=== PATIENT | male | born 1945 | race Caucasian/White ===

== ENCOUNTER 2016-12-29 09:10 | Day surgery (SDC) | payer MEDICARE ==
[2016-12-24 15:47] VITALS: BMI 34.4
[~2016-12-29 09:10] MED LIST: LACTATED RINGERS 1,000 ML IV SCH
[2016-12-29 09:48] VITALS: TEMP 97.6
[2016-12-29] MEDS ORDERED: LIDOCAINE 1% 20 ML VIAL (10MG/ML) FOR IV START INTRADERMA ONE (09:48)
[2016-12-29 09:49] LABS: Glucose,Whole Blood 145 mg/dL (75-99)
[2016-12-29] MEDS ORDERED: LIDOCAINE 1% INJ 10MG/ML (20 ML MDV) ONE (10:33)
[2016-12-29] MEDS ORDERED: PROPOFOL 10 MG/ML 20 ML VIAL IV ONE (10:33)
--- NOTE | 2016-12-29 11:02 | P.PCN ---
Date of Procedure: 12/29/16 Preoperative Diagnosis: Postoperative Diagnosis: Procedure(s) Performed: BRIEF HISTORY: Patient is a 71-year-old pleasant white male, scheduled for an elective colonoscopy as a part of screening for colorectal neoplasia. He does have family history of colon cancer diagnosed in his brother and mother in the 60s. His last colonoscopy was 10 years ago PROCEDURE PERFORMED: Colonoscopy with snare polypectomy. PREOPERATIVE DIAGNOSIS: Screening for colon cancer/family history of colon cancer. IV sedation per Anesthesia. PROCEDURE: After informed consent was obtained, the patient, was brought into the endoscopy unit. IV sedation was administered by Anesthesia under continuous monitoring. Digital rectal examination was normal. Initially the Olympus CF- 160 flexible video colonoscope was then inserted in the rectum, gradually advanced into the cecum without any difficulty. Careful examination was performed as the scope was gradually being withdrawn. Ileocecal valve and the appendiceal orifice were visualized and appeared normal. Prep was excellent. Mucosa of the cecum, ascending colon, transverse colon, descending colon, sigmoid colon, and rectum appeared normal. There was a 1 cm polyp in the proximal rectum that was removed by snare polypectomy. Scattered diffuse diverticulosis noted. Retroflexion was performed in the rectum and no lesions were seen. The patient tolerated the procedure well. IMPRESSION: 1 cm proximal rectal polyp serous was snare polypectomy Scattered diffuse diverticulosis RECOMMENDATIONS: Findings of this examination were discussed with the patient as well as his family. He was advised to follow with the biopsy results. He can have a repeat colonoscopy in 3-5 years based on the biopsy. Implants: Indications for Procedure: Operative Findings: Description of Procedure:
[2016-12-29 11:06] VITALS: RESP 18
[2016-12-29 11:23] VITALS: BP 129/70; PULSE 70
== END 2016-12-29 11:37 | disposition home or self-care (01) ==
LOC: ORWHC2ENDO 09:10
PROVIDERS: ATTEND Internal Medicine Gastroenterology
DX: Z12.11 Encounter for screening for malignant neoplasm of colon (principal); D12.8 Benign neoplasm of rectum; K57.30 Diverticulosis of large intestine without perforation or abscess without bleeding; Z80.0 Family history of malignant neoplasm of digestive organs; K21.9 Gastro-esophageal reflux disease without esophagitis; I25.10 Atherosclerotic heart disease of native coronary artery without angina pectoris; I10 Essential (primary) hypertension; F17.200 Nicotine dependence, unspecified, uncomplicated; J44.9 Chronic obstructive pulmonary disease, unspecified; Z86.711 Personal history of pulmonary embolism; G47.33 Obstructive sleep apnea (adult) (pediatric); Z86.11 Personal history of tuberculosis; Z95.5 Presence of coronary angioplasty implant and graft; E11.9 Type 2 diabetes mellitus without complications; Z79.84 Long term (current) use of oral hypoglycemic drugs; N40.0 Benign prostatic hyperplasia without lower urinary tract symptoms; Z79.82 Long term (current) use of aspirin; Z79.899 Other long term (current) drug therapy; Z88.5 Allergy status to narcotic agent; Z88.0 Allergy status to penicillin
CPT/HCPCS: 45385; 88305

== ENCOUNTER 2018-08-18 19:19 | Emergency (ER) | payer MEDICARE ==
[2018-08-18 19:28] VITALS: RESP 18
--- NOTE | 2018-08-18 19:57 | ED ---
Fall HPI - General Chief Complaint: Fall Stated Complaint: Fall Time Seen by Provider: 08/18/18 19:30 Source: patient, RN notes reviewed, old records reviewed Mode of arrival: ambulatory - History of Present Illness Initial Comments: This is a 73-year-old male the ER for evaluation status post fall fall 2 days ago patient is on blood thinners did fall trying to get into car fell backward and hit his had a positive LOC. Patient was boarding are going toward complain did finish with his flight came home and then does not coming to the emergency room for evaluation. Patient denies any complaints no headache. MD Complaint: fall -: days(s) (2) Fall From: standing When Fall Occurred: # days [employer] Fall Witnessed: yes, by family Place Fall Occurred: street Loss of Consciousness: yes Prolonged Down Time?: no Symptoms Prior to Fall: none Location: head Severity: moderate Context: tripped/slipped Associated Symptoms: denies - Related Data Home Medications Medication Instructions Recorded Confirmed Albuterol Sulfate [Proair Hfa] 1 - 2 puff INHALATION Q6HR PRN 11/15/16 08/18/18 Allopurinol [Zyloprim] 100 mg PO DAILY 11/15/16 08/18/18 Hydrochlorothiazide 25 mg PO DAILY 11/15/16 08/18/18 Losartan Potassium 100 mg PO DAILY 11/15/16 08/18/18 Metoprolol Succinate (ER) [Toprol 25 mg PO BID 11/15/16 08/18/18 Xl] Montelukast [Singulair] 10 mg PO DAILY 11/15/16 08/18/18 Nitroglycerin Sl Tabs [Nitrostat] 0.4 mg SUBLINGUAL Q5M PRN 11/15/16 08/18/18 Atorvastatin [Lipitor] 10 mg PO DAILY 12/24/16 08/18/18 Desipramine HCl 30 mg PO HS 12/24/16 08/18/18 Tamsulosin [Flomax] 0.4 mg PO BID 12/24/16 08/18/18 Apixaban [Eliquis] 5 mg PO BID 08/18/18 08/18/18 Azelastine HCl [Astepro] 1 spray EA NOSTRIL DAILY PRN 08/18/18 08/18/18 Fluticasone/Salmeterol [Advair 1 puff INHALATION RT-BID 08/18/18 08/18/18 500-50 Diskus] amLODIPine BESYLATE [Norvasc] 2.5 mg PO DAILY 08/18/18 08/18/18 sitaGLIPtin PHOS/metFORMIN HCL 1 tab PO BID 08/18/18 08/18/18 [Janumet 50-1,000 mg Tablet] Allergies Allergy/AdvReac Type Severity Reaction Status Date / Time morphine Allergy Severe Rash/Hives Verified 08/18/18 20:05 Penicillins Allergy Severe Rash/Hives Verified 08/18/18 20:05 Review of Systems ROS Statement: Those systems with pertinent positive or pertinent negative responses have been documented in the HPI. ROS Other: All systems not noted in ROS Statement are negative. Past Medical History Past Medical History: Atrial Fibrillation, Coronary Artery Disease (CAD), COPD, Hyperlipidemia, Hypertension, Osteoarthritis (OA), Prostate Disorder, Sleep Apnea/CPAP/BIPAP History of Any Multi-Drug Resistant Organisms: None Reported Past Surgical History: Appendectomy, Heart Catheterization With Stent, Orthopedic Surgery Past Anesthesia/Blood Transfusion Reactions: No Reported Reaction Date of Last Stent Placement:: unknown Past Psychological History: No Psychological Hx Reported Smoking Status: Never smoker Past Alcohol Use History: None Reported Past Drug Use History: None Reported General Exam Limitations: no limitations General appearance: alert, in no apparent distress Head exam: Present: normocephalic, normal inspection. Absent: atraumatic (Occipital abrasion) Eye exam: Present: normal appearance, PERRL, EOMI. Absent: scleral icterus, conjunctival injection, periorbital swelling ENT exam: Present: normal exam, mucous membranes moist Neck exam: Present: normal inspection. Absent: tenderness, meningismus, lymphadenopathy Respiratory exam: Present: normal lung sounds bilaterally. Absent: respiratory distress, wheezes, rales, rhonchi, stridor Cardiovascular Exam: Present: regular rate, normal rhythm, normal heart sounds. Absent: systolic murmur, diastolic murmur, rubs, gallop, clicks GI/Abdominal exam: Present: soft, normal bowel sounds. Absent: distended, tenderness, guarding, rebound, rigid Extremities exam: Present: normal inspection, full ROM, normal capillary refill. Absent: tenderness, pedal edema, joint swelling, calf tenderness Back exam: Present: normal inspection Neurological exam: Present: alert, oriented X3, CN II-XII intact Psychiatric exam: Present: normal affect, normal mood Skin exam: Present: warm, dry, intact, normal color. Absent: rash Course Vital Signs 08/18/18 19:22 Temperature 98.2 F Pulse Rate 73 Respiratory 18 Rate Blood Pressure 142/66 O2 Sat by Pulse 98 Oximetry - Reevaluation(s) Reevaluation #1: 08/18/18 20:46 Medical record reviewed Reevaluation #2: 08/18/18 20:46 Patient's in no acute distress not complaining of any pain or headache Medical Decision Making - Medical Decision Making 73 male the ER status post fall. Patient fell landing back on his head did hit his head on blood thinners. Did have positive LOC. Did fly home and coming to ER for evaluation. Patient is CT brain C-spine negative here. Patient can be discharged home - Radiology Data Radiology results: report reviewed (CT brain C-spine negative for acute disease), image reviewed Disposition Clinical Impression: Fall, Head injuries Disposition: HOME SELF-CARE Condition: Good Instructions (If sedation given, give patient instructions): Fall Prevention for Older Adults (ED), Head Injury (ED) Is patient prescribed a controlled substance at d/c from ED?: No Referrals: Javon Paniagua MD [Primary Care Provider] - 1-2 days
--- NOTE | 2018-08-18 20:53 | CT ---
EXAMINATION TYPE: CT brain camila rivero DATE OF EXAM: 08/18/2018 COMPARISON: HISTORY: Fall on concrete yesterday, right posterior head injury with +LOC. CT DLP: 1551 mGycm Automated exposure control for dose reduction was used. TECHNIQUE: CT scan of the head and cervical spine are performed without contrast. FINDINGS: There is cerebral cortical atrophy. There is no mass effect nor midline shift. There is n o sign of intracranial hemorrhage. Calvarium is intact. Cervical vertebra have normal alignment. There is mild degenerative disc space narrowing at C5-6. The re is mild spurring of the endplates. Facet joints are intact. The skull base appears intact. There i s some soft tissue ossification posterior to the mid cervical spine. There is carotid artery calcific ation. IMPRESSION: Cerebral atrophy. No acute intracranial abnormality. Spondylotic changes in the lower cervical spine. No fracture.
[2018-08-18 21:10] VITALS: BP 138/68; PULSE 76; TEMP 98
== END 2018-08-18 21:10 | disposition home or self-care (01) ==
LOC: EC 19:19
DX: S00.01XA Abrasion of scalp, initial encounter (principal); I48.91 Unspecified atrial fibrillation; I25.10 Atherosclerotic heart disease of native coronary artery without angina pectoris; J44.9 Chronic obstructive pulmonary disease, unspecified; E78.5 Hyperlipidemia, unspecified; I10 Essential (primary) hypertension; N42.9 Disorder of prostate, unspecified; G47.30 Sleep apnea, unspecified; Z99.89 Dependence on other enabling machines and devices; Z95.5 Presence of coronary angioplasty implant and graft; Z79.01 Long term (current) use of anticoagulants; Z79.51 Long term (current) use of inhaled steroids; Z79.84 Long term (current) use of oral hypoglycemic drugs; Z79.899 Other long term (current) drug therapy; Z88.5 Allergy status to narcotic agent; Z88.0 Allergy status to penicillin; W01.10XA Fall on same level from slipping, tripping and stumbling with subsequent striking against unspecified object, initial encounter; Y92.410 Unspecified street and highway as the place of occurrence of the external cause; Y93.89 Activity, other specified
CPT/HCPCS: 70450; 72125; 93005; 99284

== ENCOUNTER → 2020-09-20 | Outpatient (CLI) | payer MEDICARE ==
--- NOTE | 2020-09-23 07:00 | PE ---
EXAMINATION TYPE: PET CT fusion skull to thigh DATE OF EXAM: 09/20/2020 COMPARISON: NONE HISTORY: Solitary pulmonary nodule , abnormal CT, history of renal cell carcinoma diagnosed July [id number] TECHNIQUE: Following the intravenous administration of 7.74 mCi of F-18 FDG, whole body images are p erformed from the skull base to the midthigh. Images are reviewed on the computer in the coronal, ax ial, and sagittal planes. Reconstructed rotating images are created on independent workstation and r eviewed on the computer. A localization and attenuation correction CT is performed in conjunction w ith the PET scan. Blood glucose level equals 159 SCAN: Initial Scan FINDINGS: SKULL BASE AND NECK: Abnormal several enlarged hypermetabolic right sided neck lymph nodes, for refe rence 2.3 x 1.6 cm lymph node just below vocal cords axial image 34, max SUV is 5.81. CHEST, MEDIASTINUM, AND HILAR REGION: Small to borderline moderate size right pleural effusion. Small left pleural effusion. Both ametabolic. Large irregular obstructive right hilar roughly 10 x 6 cm mass axial image 74, max SUV is 9.55. There is postobstructive atelectasis with heterogeneity extending inferiorly. Invasion into the azygoesoph ageal recess is suspected. Abnormal hypermetabolic thoracic lymph nodes throughout the mediastinum and bilateral hilar regions. For reference there is 3.4 x 3.4 cm paratracheal lymph node axial image 61, max SUV is 8.22. Extensio n into the anterior superior mediastinum is noted extending into the right neck. ABDOMEN AND PELVIS: Probable hepatic metastatic lesion with poorly visualized slightly hypodense 4.3 cm lesion right hepatic lobe axial image 126, max SUV is 8.4. Abnormal ill-defined yolande hepatic adenopathy near image 131, max SUV is 8.5. OSSEOUS STRUCTURES: No areas of abnormal hypermetabolic uptake. OTHER CT: Moderate to severe three-vessel coronary artery calcification. Small to tiny pericardial ef fusion. Mild flame-shaped subareolar gynecomastia bilaterally. Moderate calcified plaque bilateral carotid bulb level. Low density area posterior kidney on axial im age 89 with a metabolic, possible posttreatment change or benign cystic lesion. Metallic hardware from right hip arthroplasty causes streak artifact limiting evaluation of pelvic st ructures. Scattered bilateral pelvic phleboliths. IMPRESSION: Findings consistent with high stage neoplasm as detailed above. Large right-sided obstruc tive mass with significant thoracic adenopathy and right neck adenopathy along with hepatic metastati c disease and central yolande hepatic adenopathy.
== END | disposition home or self-care (01) ==
LOC: RADPETMAIN 09:29
PROVIDERS: ATTEND Internal Medicine
DX: R91.8 Other nonspecific abnormal finding of lung field (principal); C78.7 Secondary malignant neoplasm of liver and intrahepatic bile duct; Z85.528 Personal history of other malignant neoplasm of kidney
CPT/HCPCS: 78815; A9552

== ENCOUNTER → 2020-09-25 | Outpatient (CLI) | payer MEDICARE ==
[2020-09-25 16:13] LABS: African American GFR (CKD) >90 (>60 ml/min/1.73 sqM); Blood Urea Nitrogen 17 mg/dL (9-20); Non-African American GFR(CKD) >90 (>60 ml/min/1.73 sqM)
--- NOTE | 2020-09-26 08:19 | CT ---
EXAMINATION TYPE: CT chest w con DATE OF EXAM: 09/25/2020 COMPARISON: PET/CT 09/20/2020 HISTORY: Abnormal lung brown CT DLP: 466.60 mGycm Automated exposure control for dose reduction was used. CONTRAST: CT scan of the chest is performed with IV Contrast, patient injected with 100 mL of Isovue 300. FINDINGS: LUNGS: Difficult to measure large right-sided hilar mass measuring an estimated 8.1 x 6.7 cm with pos tobstructive atelectasis right lower lobe. Satellite nodularity identified adjacent to the right jessica r mass. Large right-sided pleural effusion which may be partially loculated. Smaller but moderate siz ed left-sided pleural effusion noted. No additional mass is identified with certainty at this time. MEDIASTINUM: Prevascular adenopathy to the right midlung measuring 2.3 cm. High right paratracheal co nglomerate lymph node mass measuring 4.1 x 5.0 cm. Low right paratracheal adenopathy measuring 3.1 cm . Subcarinal conglomerate mass adenopathy measuring 6.2 x 4.4 cm. Right tracheobronchial adenopathy. AP window adenopathy measuring 1 cm. UPPER ABDOMEN: Hepatic lesions compatible with metastatic disease. Splenic lesion also noted that may reflect additional metastatic disease. Gastrohepatic ligament adenopathy measuring up to 1.1 cm. OTHER: No additional significant abnormality is seen. IMPRESSION: 1. Large right hilar mass which is difficult to measure with postobstructive atelectasis and pleural effusion. Massive mediastinal adenopathy as outlined above. Metastatic disease to the liver and suspe cted metastatic lesion to the spleen.
== END | disposition home or self-care (01) ==
LOC: RADCTMAIN 15:31
PROVIDERS: ATTEND Internal Medicine
DX: J90 Pleural effusion, not elsewhere classified (principal); J98.11 Atelectasis; C78.7 Secondary malignant neoplasm of liver and intrahepatic bile duct; R59.0 Localized enlarged lymph nodes
CPT/HCPCS: 82565; 84520; 71260; 36415; Q9967

== ENCOUNTER 2020-10-05 15:37 | Inpatient (IN) | payer MEDICARE ==
[2020-10-07 14:27] VITALS: BP 83/50; PULSE 82; RESP 22; TEMP 101.1
== END 2020-10-07 22:59 | disposition expired | DRG 180 ==
LOC: EC 15:37 → 4SSUR 18:43
PROVIDERS: ADMIT Internal Medicine; ATTEND Internal Medicine
DX: C78.01 Secondary malignant neoplasm of right lung (principal); J96.21 Acute and chronic respiratory failure with hypoxia; J18.9 Pneumonia, unspecified organism; B39.1 Chronic pulmonary histoplasmosis capsulati; J44.0 Chronic obstructive pulmonary disease with (acute) lower respiratory infection; J90 Pleural effusion, not elsewhere classified; C78.7 Secondary malignant neoplasm of liver and intrahepatic bile duct; C64.1 Malignant neoplasm of right kidney, except renal pelvis; E22.2 Syndrome of inappropriate secretion of antidiuretic hormone; C78.89 Secondary malignant neoplasm of other digestive organs; I48.20 Chronic atrial fibrillation, unspecified; I10 Essential (primary) hypertension; G47.33 Obstructive sleep apnea (adult) (pediatric); I25.10 Atherosclerotic heart disease of native coronary artery without angina pectoris; D69.6 Thrombocytopenia, unspecified; Z86.16 Personal history of COVID-19; E11.9 Type 2 diabetes mellitus without complications; Z95.1 Presence of aortocoronary bypass graft; Z51.5 Encounter for palliative care; Z66 Do not resuscitate; J61 Pneumoconiosis due to asbestos and other mineral fibers; Z79.4 Long term (current) use of insulin; Z79.899 Other long term (current) drug therapy; Z79.01 Long term (current) use of anticoagulants; R32 Unspecified urinary incontinence; D50.9 Iron deficiency anemia, unspecified; E78.5 Hyperlipidemia, unspecified; Z87.01 Personal history of pneumonia (recurrent); Z99.81 Dependence on supplemental oxygen; Z87.09 Personal history of other diseases of the respiratory system; B94.8 Sequelae of other specified infectious and parasitic diseases; Z86.15 Personal history of latent tuberculosis infection; R15.9 Full incontinence of feces; N42.9 Disorder of prostate, unspecified; M19.90 Unspecified osteoarthritis, unspecified site
CPT/HCPCS: 36415; 71045; 71046; 76705; 80053; 83605; 83615; 83880; 84153; 84484; 85025; 85610; 85730; 87040; 87635; 93005; 94760; 99285